=== PATIENT | female | born 1955 | race Asian ===

== ENCOUNTER 2016-09-13 10:39 | Outpatient (CLI) | payer OTHER | END 2016-09-13 11:40 | disposition home or self-care (01) | LOC: MAMMO 10:39 | DX: Z12.31 Encounter for screening mammogram for malignant neoplasm of breast (principal) | CPT/HCPCS: G0202-TC ==

== ENCOUNTER 2018-03-05 09:56 | Outpatient (CLI) | payer OTHER | END 2018-03-05 19:08 | disposition home or self-care (01) | LOC: MAMMO 09:56 | DX: Z12.31 Encounter for screening mammogram for malignant neoplasm of breast (principal) ==

== ENCOUNTER 2019-03-27 09:07 | Outpatient (CLI) | payer OTHER | END 2019-03-27 19:25 | disposition home or self-care (01) | LOC: MAMMO 09:07 | DX: Z12.31 Encounter for screening mammogram for malignant neoplasm of breast (principal) ==